=== PATIENT | male | born 1985 | race Asian ===

== ENCOUNTER 2019-07-16 21:27 | Emergency (ER) | payer MEDICAID ==
[~2019-07-16] VITALS: Ht 165.1 cm; Wt 63.6 kg
[~2019-07-16 21:27] MED LIST: METH4TAB3 PO
[2019-07-16] MEDS ORDERED: DOXYCYCLINE 100MG CAPSULE PO STA (22:09)
[2019-07-16] MEDS ORDERED: DOXY100C2 PO (22:13)
[2019-07-16 22:19] VITALS: BP 124/87
== END 2019-07-16 22:22 | disposition home or self-care (01) ==
LOC: ER 21:27
DX: L03.031 Cellulitis of right toe (principal); F12.90 Cannabis use, unspecified, uncomplicated; Z88.0 Allergy status to penicillin; Z79.899 Other long term (current) drug therapy
CPT/HCPCS: 99283

== ENCOUNTER 2020-02-05 19:16 | Emergency (ER) | payer MEDICAID, OTHER ==
[~2020-02-05] VITALS: Ht 165.1 cm; Wt 140.0 kg
[2020-02-05 19:32] VITALS: BP 125/69
== END 2020-02-05 21:20 | disposition home or self-care (01) ==
LOC: ER 19:16
DX: S93.491A Sprain of other ligament of right ankle, initial encounter (principal); M25.571 Pain in right ankle and joints of right foot; M25.471 Effusion, right ankle; F12.90 Cannabis use, unspecified, uncomplicated; Z88.0 Allergy status to penicillin; Z79.899 Other long term (current) drug therapy; X58.XXXA Exposure to other specified factors, initial encounter; Y93.89 Activity, other specified; Y92.89 Other specified places as the place of occurrence of the external cause; Y99.8 Other external cause status
CPT/HCPCS: 29515; 73610; 99283